=== PATIENT | female | born 1955 | race Caucasian/White ===

== ENCOUNTER 2023-06-11 14:38 | Outpatient (CLI) | payer OTHER, SELFPAY | END 2023-06-11 14:39 | disposition home or self-care (01) | PROVIDERS: PCP Family Medicine; Visit Provider Family Medicine | DX: M79.641 Pain in right hand (principal); Z13.220 Encounter for screening for lipoid disorders; Z13.21 Encounter for screening for nutritional disorder | CPT/HCPCS: 80061; 82607; 84550; 86140; 86431 ==

== ENCOUNTER 2024-03-10 09:56 | Outpatient (CLI) | payer OTHER, SELFPAY ==
--- OUTSIDE RECORDS SUMMARY | 2024-03-10 09:58 | XMS_ITS | Encounter Summary ---
Author Organization Formerly [facility], [facility] Address [address] [place] [address] Care Team Providers Care Customer Consulting Manager Name Role Phone Edgardo Pollard MD Primary Care Provider Encounter Details Date Type Department Care Team (Late st Contact Info) Description 01/09/2024 E-Visit [facility] [address] [place] [address] Mychart, [place] [address] Social History Tobacco Use Types Packs/Day Years Used Date Smoking Tobacco: Never Smokeless Tobacco: Never Alcohol Use Standard Drinks/Week Comments Yes 4 (1 standard drink = 0.6 oz pur e alcohol) Sex and Gender Information Value Date Recorded Sex Assigned at Not on file Gender Identity Not on file Sexual Orientation Not on file documented as of this encounter Plan of Treatment Not on file documented as of this encounter Visit Diagnoses Not on filedocumented in this encounter Care Teams Customer Consulting Manager Relationship Specialty Start Date End Date Edgardo Pollard MD [facility] [address] [place] [address] PCP - General Family Practice 04/13/21 documented as of this encounter
--- OUTSIDE RECORDS SUMMARY | 2024-03-10 09:58 | XMS_ITS | Encounter Summary ---
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 Name Role Phone Edgardo Pollard MD Primary Care Provider [phone] Encounter Details Date Type Department Care Team (Latest Contact Info) Description 01/27/2024 12:10 PM CDT - 01/27/2024 11:59 PM CDT Hospital Encounter [facility] Gastroenterology [address] [place] [address] Ann Garg MD [address] [place] [address] Screen for colon cancer (Primary Dx) Discharge Disposition: Home Social History Tobacco Use Types Packs/Day Years Used Date Smoking Tobacco: Never Smokeless Tobacco: Never Alcohol Use Standard Drinks/Week Comments Yes 4 (1 standard drink = 0.6 oz pur e alcohol) Sex and Gender Information Value Date Recorded Sex Assigned at Not on file Gender Identity Not on file Sexual Orientation Not on file documented as of this encounter Last Filed Vital Signs Vital Sign Reading Time Taken Comments Blood Pressure 130/86 01/27/2024 1:55 PM CDT Pulse 61 01/27/2024 1:55 PM CDT Temperature 36.9 ??C (98.4 ??F) 01/27/2024 12:23 PM C DT Respiratory Rate 14 01/27/2024 1:55 PM CDT Oxygen Saturation 98% 01/27/2024 1:55 PM CDT Inhaled Oxygen Concentration - - Weight 59.4 kg (131 lb) 01/27/2024 12:23 PM CDT Height - - Body Mass Index 21.14 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 Colon Polyps: Care Instructions Your Care Instructions Colon polyps are growths in the colon or the rectum. The cause of most colon polyps is not known, and most people who get them do not have any problems. But a certain kind can turn into cancer. For this reason, regular testing for colon polyps is important for people age 50 and older and anyone whohas an increased risk for colon cancer. Polyps are usually found through routine colon cancer screening tests. Although most colon polyps are not cancerous, they are usually removed and then tested for cancer. Screening for colon cancer saves lives because the cancer can usually be cured if it is caught early. If you have a polyp that is the type that can turn into cancer, you may need more tests to examine your entire colon. The doctor will remove any other polyps that he or she finds, and you will be tested more often. Follow-up care is a ross part of your treatment and safety. Be sure to make and go to all appointments, and call your doctor if you are having problems. It's also a good idea to know your test resultsand keep a list of the medicines you take. How can you care for yourself at home? Regular exams to look for colon polyps are the best way to prevent polyps from turning into colon cancer. These can include a test for blood in the stool (fecal occult blood test), colonoscopy, and sigmoidoscopy. Talk with your doctor about a testing schedule that is right for you. To prevent polyps There is no home treatment for colon polyps. But you can take steps to prevent them from forming. Get regular exercise and stay at a healthy body weight. Exercise can lower your chance of getting colon cancer. Get at least 30 minutes of exercise on most days of the week. Walking is a good choice.You also may want to do other activities, such as running, swimming, cycling, or playing tennis or team sports. Limit alcohol to 2 drinks a day for men and 1 drink a day for women. Too much alcohol can cause health problems. Do not smoke. Smoking can raise your risk of getting colon polyps. If you need help quitting, talk to your doctor about stop-smoking programs and medicines. These can increase your chances of quitting for good. Eat lots of fruits and vegetables, and limit animal fat in your diet. When should you call for help? Call your doctor now or seek immediate medical care if: You have severe belly pain. Your stools are maroon or very bloody. Watch closely for changes in your health, and be sure to contact your doctor if: You have a fever. You have nausea or vomiting. You have a change in bowel habits (new constipation or diarrhea). Your symptoms get worse or are not improving as expected. Where can you learn more? Go to [employer]/Sonendo and enter C571 in the search box. Current as of: June 02, 2015 Content Version: 108 ?? [id number] Huddler. Learning About Diverticulosis and Diverticulitis What are diverticulosis and diverticulitis? In diverticulosis and diverticulitis, pouches called diverticula form in the wall of the large intestine, or colon. In diverticulosis, the pouches do not cause any pain or other symptoms. In diverticulitis, the pouches get inflamed or infected and cause symptoms. Doctors aren't sure what causes these pouches in the colon. But they think that a low-fiber diet may play a role. Without fiber to add bulk to the stool, the colon has to work harder than normal to push the stool forward. The pressure from this may cause pouches to form in weak spots along the colon. Some people with diverticulosis get diverticulitis. But experts don't know why this happens. What are the symptoms? In diverticulosis, most people don't have symptoms. But pouches sometimes bleed. In diverticulitis, symptoms may last from a few hours to a week or more. They include: Belly pain. This is usually in the lower left side. It is sometimes worse when you move. This is the most common symptom. Fever and chills. Bloating and gas. Diarrhea or constipation. Nausea and sometimes vomiting. Not feeling like eating. How can you prevent these problems? You may be able to lower your chance of getting diverticulitis. You can do this by taking steps to prevent constipation. Eat fruits, vegetables, beans, and whole grains every day. These foods are high in fiber. Drink plenty of fluids (enough so that your urine is light yellow or clear like water). If you havekidney, heart, or liver disease and have to limit fluids, talk with your doctor before you increasethe amount of fluids you drink. Get at least 30 minutes of exercise on most days of the week. Walking is a good choice. You also may want to do other activities, such as running, swimming, cycling, or playing tennis or team sports. Take a fiber supplement, such as Citrucel or Metamucil, every day if needed. Read and follow all instructions on the label. Schedule time each day for a bowel movement. Having a daily routine may help. Take your time and donot strain when having a bowel movement. Some people avoid nuts, seeds, berries, and popcorn. They believe that these foods might get trapped in the diverticula and cause pain. But there is no proof that these foods cause diverticulitis or make it worse. How are these problems treated? The best way to treat diverticulosis is to avoid constipation. (See the tips above.) Treatment for diverticulitis includes antibiotics and often a change in your diet. You may need only liquids at first. Your doctor may suggest pain medicines for pain or belly cramps. In some cases, surgery may be needed. Follow-up care is a ross part of your treatment and safety. Be sure to make and go to all appointments, and call your doctor if you are having problems. It's also a good idea to know your test resultsand keep a list of the medicines you take. Where can you learn more? Go to [employer]/Sonendo and enter E426 in the search box. Current as of: June 02, 2015 Content Version: 108 ?? [id number] Flock, Family-Mingle. Hemorrhoids: Care Instructions Your Care Instructions Hemorrhoids are enlarged veins that develop in the anal canal. Bleeding during bowel movements, itching, swelling, and rectal pain are the most common symptoms. They can be uncomfortable at times, but hemorrhoids rarely are a serious problem. You can treat most hemorrhoids with simple changes to your diet and bowel habits. These changes include eating more fiber and not straining to pass stools. Most hemorrhoids do not need surgery or other treatment unless they are very large and painful or bleed a lot. Follow-up care is a ross part of your treatment and safety. Be sure to make and go to all appointments, and call your doctor if you are having problems. It???s also a good idea to know your test results and keep a list of the medicines you take. How can you care for yourself at home? Sit in a few inches of warm water (sitz bath) 3 times a day and after bowel movements. The warm water helps with pain and itching. Put ice on your anal area several times a day for 10 minutes at a time. Put a thin cloth between the ice and your skin. Follow this by placing a warm, wet towel on the area for another 10 to 20 minutes. Take pain medicines exactly as directed. If the doctor gave you a prescription medicine for pain, take it as prescribed. If you are not taking a prescription pain medicine, ask your doctor if you can take an vivx-dhd-agmcqcd medicine. Keep the anal area clean, but be gentle. Use water and a fragrance-free soap, such as Ivory, or usebaby wipes or medicated pads, such as Tucks. Wear cotton underwear and loose clothing to decrease moisture in the anal area. Eat more fiber. Include foods such as whole-grain breads and cereals, raw vegetables, raw and driedfruits, and beans. Drink plenty of fluids, enough so that your urine is light yellow or clear like water. If you have kidney, heart, or liver disease and have to limit fluids, talk with your doctor before you increase the amount of fluids you drink. Use a stool softener that contains bran or psyllium. You can save money by buying bran or psyllium (available in bulk at most [employer] food stores) and sprinkling it on foods or stirring it into fruit juice. Or you can use a product such as Metamucil or Hydrocil. Practice healthy bowel habits. Go to the bathroom as soon as you have the urge. Avoid straining to pass stools. Relax and give yourself time to let things happen naturally. Do not hold your breath while passing stools. Do not read while sitting on the toilet. Get off the toilet as soon as you have finished. Take your medicines exactly as prescribed. Call your doctor if you think you are having a problem with your medicine. When should you call for help? Call 911 anytime you think you may need emergency care. For example, call if: You pass maroon or very bloody stools. Call your doctor now or seek immediate medical care if: You have increased pain. You have increased bleeding. Watch closely for changes in your health, and be sure to contact your doctor if: Your symptoms have not improved after 3 or 4 days. Where can you learn more? Go to [employer]/Sonendo and enter F228 in the search box. Current as of: June 02, 2015 Content Version: 108 ?? [id number] Huddler. documented in this encounter Medications at Time of Discharge Medication Sig Dispensed Refills Start Date End Date desoximetasone (TOPICORT) 0.25 % ointment Apply to the affected areas on back of neck for up 2 weeks as needed with flares. 60 g 2 06/16/2017 documented as of this encounter Progress Notes * Ann Garg MD - 01/27/2024 12:30 PM CDT CC: Colonoscopy HPI: Patient here for colonoscopy. Clinically asymptomatic. History and Physical PMH: Reviewed PSH: Reviewed Social Hx: Reviewed Allergies: Reviewed Medications: Reviewed Family History: Reviewed Review of Systems: Pertinent ROS done. Exam: Alert, awake and oriented. Vitals: See documentation flowsheet. Pre-Sedation Assessment Head and Neck: Examined Chest: Clear to auscultation. No wheezes or rales. CVS: Regular, rate, rhythm. Abdomen: Abdomen soft, non-tender without masses or organomegaly. Extremities: Examined Hx sedation/anesthesia reaction: No Airway abnormal: No Mallampati Score: 2 ASA: P2 A patient with mild systemic dz Plan: Colonoscopy under moderate sedation Supervising provider: Ann Garg MD Potential risks and complications of procedure have been discussed with patient. Consent obtained prior to procedure. 01/27/2024, 1:00 PM documented in this encounter Procedure Notes * Ann Garg MD - 01/27/2024 12:20 PM CDT Patient Name: Aleja Salazar Procedure Date: 01/27/2024 12:20 PM Date of : 1955 Age: 68 Gender: Female Note Status: Finalized Instrument Name: 187 Procedure: Colonoscopy Indications: High risk colon cancer surveillance: Personal history of colonic polyps Providers: Ann Garg MD, Kati Meier MD: Medicines: Midazolam 2 mg IV, Fentanyl 100 micrograms IV Complications: No immediate complications. Procedure: Pre-Anesthesia Assessment: - Prior to the procedure, a History and Physical was performed, and patient medications and allergies were reviewed. The patient is competent. The risks and benefits of the procedure and the sedation options and risks were discussed with the patient. All questions were answered and informed consent was obtained. Patient identification and proposed procedure were verified by the physician and the nurse in the pre-procedure area in the procedure room in the endoscopy suite. Mental Status Examination: alert and oriented. Airway Examination: normal oropharyngeal airway and neck mobility. Respiratory Examination: clear to auscultation. CV Examination: normal. Prophylactic Antibiotics: The patient does not require prophylactic antibiotics. Prior Anticoagulants: The patient has taken no anticoagulant or antiplatelet agents. ASA Grade Assessment: II - A patient with mild systemic disease. After reviewing the risks and benefits, the patient was deemed in satisfactory condition to undergo the procedure. The anesthesia plan was to use moderate sedation / analgesia (conscious sedation). Immediately prior to administration of medications, the patient was re-assessed for adequacy to receive sedatives. The heart rate, respiratory rate, oxygen saturations, blood pressure, adequacy of pulmonary ventilation, and response to care were monitored throughout the procedure. The physical status of the patient was re-assessed after the procedure. After I obtained informed consent, the scope was passed under direct vision. Prior to sedation, patient identity and procedure was reverified. Throughout the procedure, the patient's blood pressure, pulse, and oxygen saturations were monitored continuously. The Colonoscope was introduced through the anus and advanced to the cecum, identified by appendiceal orifice and ileocecal valve. The colonoscopy was technically difficult and complex due to a redundant colon, significant looping and a tortuous colon. Successful completion of the procedure was aided by increasing the dose of sedation medication, using manual pressure, withdrawing and reinserting the scope, straightening and shortening the scope to obtain bowel loop reduction and using scope torsion. The patient tolerated the procedure fairly well. The quality of the bowel preparation was good. The ileocecal valve, appendiceal orifice, and rectum were photographed. Findings: The perianal and digital rectal examinations were normal. A 24 mm polyp was found in the hepatic flexure. The polyp was sessile. Preparations were made for mucosal resection. Saline was injected to raise the lesion. Snare mucosal resection was performed. Resection and retrieval were complete. A 12 mm polyp was found in the transverse colon. The polyp was sessile. The polyp was removed with a saline injection-lift technique using a hot snare. Resection and retrieval were complete. Verification of patient identification for the specimen was done. Estimated blood loss was minimal. A 3 mm polyp was found in the transverse colon. The polyp was sessile. The polyp was removed with a jumbo cold forceps. Resection and retrieval were complete. Verification of patient identification for the specimen was done. Estimated blood loss was minimal. Multiple medium-mouthed and small-mouthed diverticula were found in the sigmoid colon. Non-bleeding internal hemorrhoids were found during retroflexion. Moderate Sedation: Moderate (conscious) sedation was administered by the nurse and supervised by the endoscopist. The patient's oxygen saturation, heart rate, blood pressure and response to care were monitored. Total physician intraservice time was 32 minutes. Impression: - One 24 mm polyp at the hepatic flexure, removed with mucosal resection. Resected and retrieved. - One 12 mm polyp in the transverse colon, removed using injection-lift and a hot snare. Resected and retrieved. - One 3 mm polyp in the transverse colon, removed with a jumbo cold forceps. Resected and retrieved. - Diverticulosis in the sigmoid colon. - Non-bleeding internal hemorrhoids. - Mucosal resection was performed. Resection and retrieval were complete. Recommendation: - Discharge patient to home (ambulatory). - High fiber diet indefinitely. - No ibuprofen, naproxen, or other non-steroidal anti-inflammatory drugs for 2 weeks after polyp removal. - Await pathology results. - Repeat colonoscopy in 3 years for surveillance based on pathology results. - Return to referring physician as previously scheduled. Procedure Code(s): --- Professional --- 79250, 22,PT, Colonoscopy, flexible; with endoscopic mucosal resection 44985, 59,PT, Colonoscopy, flexible; with removal of tumor(s), polyp(s), or other lesion(s) by snare technique 95401, 59,PT, Colonoscopy, flexible; with biopsy, single or multiple 67311, 59,PT, Colonoscopy, flexible; with directed submucosal injection(s), any substance G0500, PT, Moderate sedation services provided by the same physician or other qualified health group care worker performing a gastrointestinal endoscopic service that sedation supports, requiring the presence of an independent trained observer to assist in the monitoring of the patient's level of consciousness and physiological status; initial 15 minutes of intra-service time; patient age 5 years or older (additional time may be reported with 32254, as appropriate) 69978, PT, Moderate sedation; each additional 15 minutes intraservice time Diagnosis Code(s): --- Professional --- Z12.11, Encounter for screening for malignant neoplasm of colon Z86.010, Personal history of colonic polyps K63.5, Polyp of Colon K64.8, Other hemorrhoids K57.30, Diverticulosis of large intestine without perforation or abscess without bleeding CPT copyright 2021 [employer]. All rights reserved. The codes documented in this report are preliminary and upon locksmith review may be revised to meet current compliance requirements. Attending Participation: MD Ann Portillo MD 01/27/2024 1:45:17 PM This report has been signed electronically. Number of Addenda: 0 Note Initiated On: 01/27/2024 12:20 PM documented in this encounter Plan of Treatment Not on file documented as of this encounter Procedures Procedure Name Priority Date/Time Associated Diagnosis Comments SURGICAL PATHOLOGY, GI Routine 01/27/2024 1:35 PM CDT Screen for colon cancer COLONOSCOPY Routine 01/27/2024 12:20 PM CDT Screen for colon cancer documented in this encounter Results * Surgical Path - GI (01/27/2024 1:35 PM CDT) Case Report Surgical Pathology ?Case: [id number] ? Authorizing Provider: ??Ann Garg MD ? Collected: ? 01/27/2024 1335 ? Ordering Location: ? [facility] ?? Received: ?01/27/2024 1418 ? [facility] ? Pathologist: ? Salena Foster MD ? Specimen: ?Colon, hepatic flexure, transverse ? 02/02/2024 10:39 AM [facility] FINAL DIAGNOSIS A. Colon, hepatic flexure, transverse, polypectomies: Tubular adenoma fragments 02/02/2024 10:39 AM [facility] Clinical Information Screening Colon 02/02/2024 10:39 AM [facility] Microscopic Description Microscopic examination is performed. 02/02/2024 10:39 AM T [facility] Gross Description A: The specimen is received in formalin and labeled with the patient's name and Colon, hepatic flexure, transverse. The specimen consists of a 1.3 x 0.8 x 0.7 cm sessile polyp. The polyp is sectioned and entirely submitted in cassette A1. Also received are 2 allen-pink polypoid tissue fragments measuring 0.2-1 cm. The fragments are filtered and entirely submitted in cassette A2. DR 02/02/2024 10:39 AM CDT [facility] Embedded Images 02/02/2024 10:39 AM T [facility] Tissue COLON STRUCTURE / Unknown 01/27/2024 1:35 PM CDT 01/27/2024 2:18 PM CDT Ann Garg MD LAB PATHOLOGY Performing Organization Address City/State/[facility] [place] [address], [facility] * COLONOSCOPY [[id number]] (01/27/2024 12:20 PM CDT) 01/27/2024 12:2 0 PM CDT Narrative GI ([facility]OVATION) - 01/27/2024 1:45 PM CDT Instrument Name: 187 Indications: ? High risk colon cancer surveillance: Personal ? history of colonic polyps Providers: ? Ann Garg MD, Kati Meier MD: ? Medicines: ? Midazolam 2 mg IV, Fentanyl 100 micrograms IV Complications: ? No immediate complications. Procedure: ? Pre-Anesthesia Assessment: ? - Prior to the procedure, a History and Physical ? was performed, and patient medications and ? allergies were reviewed. The patient is competent. ? The risks and benefits of the procedure and the ? sedation options and risks were discussed with the ? patient. All questions were answered and informed ? consent was obtained. Patient identification and ? proposed procedure were verified by the physician ? and the nurse in the pre-procedure area in the ? procedure room in the endoscopy suite. Mental ? Status Examination: alert and oriented. Airway ? Examination: normal oropharyngeal airway and neck ? mobility. Respiratory Examination: clear to ? auscultation. CV Examination: normal. Prophylactic ? Antibiotics: The patient does not require ? prophylactic antibiotics. Prior Anticoagulants: The ? patient has taken no anticoagulant or antiplatelet ? agents. ASA Grade Assessment: II - A patient with ? mild systemic disease. After reviewing the risks ? and benefits, the patient was deemed in ? satisfactory condition to undergo the procedure. ? The anesthesia plan was to use moderate sedation / ? analgesia (conscious sedation). Immediately prior ? to administration of medications, the patient was ? re-assessed for adequacy to receive sedatives. The ? heart rate, respiratory rate, oxygen saturations, ? blood pressure, adequacy of pulmonary ventilation, ? and response to care were monitored throughout the ? procedure. The physical status of the patient was ? re-assessed after the procedure. ? After I obtained informed consent, the scope was ? passed under direct vision. Prior to sedation, ? patient identity and procedure was reverified. ? Throughout the procedure, the patient's blood ? pressure, pulse, and oxygen saturations were ? monitored continuously. The Colonoscope was ? introduced through the anus and advanced to the ? cecum, identified by appendiceal orifice and ? ileocecal valve. The colonoscopy was technically ? difficult and complex due to a redundant colon, ? significant looping and a tortuous colon. ? Successful completion of the procedure was aided by ? increasing the dose of sedation medication, using ? manual pressure, withdrawing and reinserting the ? scope, straightening and shortening the scope to ? obtain bowel loop reduction and using scope ? torsion. The patient tolerated the procedure fairly ? well. The quality of the bowel preparation was ? good. The ileocecal valve, appendiceal orifice, and ? rectum were photographed. Findings: ? The perianal and digital rectal examinations were normal. ? A 24 mm polyp was found in the hepatic flexure. The polyp was ? sessile. Preparations were made for mucosal resection. Saline was ? injected to raise the lesion. Snare mucosal resection was performed. ? Resection and retrieval were complete. ? A 12 mm polyp was found in the transverse colon. The polyp was ? sessile. The polyp was removed with a saline injection-lift technique ? using a hot snare. Resection and retrieval were complete. ? Verification of patient identification for the specimen was done. ? Estimated blood loss was minimal. ? A 3 mm polyp was found in the transverse colon. The polyp was ? sessile. The polyp was removed with a jumbo cold forceps. Resection ? and retrieval were complete. Verification of patient identification ? for the specimen was done. Estimated blood loss was minimal. ? Multiple medium-mouthed and small-mouthed diverticula were found in ? the sigmoid colon. ? Non-bleeding internal hemorrhoids were found during retroflexion. Moderate Sedation: ? Moderate (conscious) sedation was administered by the nurse and ? supervised by the endoscopist. The patient's oxygen saturation, heart ? rate, blood pressure and response to care were monitored. Total ? physician intraservice time was 32 minutes. Impression: ?- One 24 mm polyp at the hepatic flexure, removed ? with mucosal resection. Resected and retrieved. ? - One 12 mm polyp in the transverse colon, removed ? using injection-lift and a hot snare. Resected and ? retrieved. ? - One 3 mm polyp in the transverse colon, removed ? with a jumbo cold forceps. Resected and retrieved. ? - Diverticulosis in the sigmoid colon. ? - Non-bleeding internal hemorrhoids. ? - Mucosal resection was performed. Resection and ? retrieval were complete. Recommendation: ?- Discharge patient to home (ambulatory). ? - High fiber diet indefinitely. ? - No ibuprofen, naproxen, or other non- steroidal ? anti-inflammatory drugs for 2 weeks after polyp ? removal. ? - Await pathology results. ? - Repeat colonoscopy in 3 years for surveillance ? based on pathology results. ? - Return to referring physician as previously ? scheduled. Procedure Code(s): ? --- Professional --- ? 48457, 22,PT, Colonoscopy, flexible; with ? endoscopic mucosal resection ? 12824, 59,PT, Colonoscopy, flexible; with removal ? of tumor(s), polyp(s), or other lesion(s) by snare ? technique ? 36761, 59,PT, Colonoscopy, flexible; with biopsy, ? single or multiple ? 61489, 59,PT, Colonoscopy, flexible; with directed ? submucosal injection(s), any substance ? G0500, PT, Moderate sedation services provided by ? the same physician or other qualified health care ? professional performing a gastrointestinal ? endoscopic service that sedation supports, ? requiring the presence of an independent trained ? observer to assist in the monitoring of the ? patient's level of consciousness and physiological ? status; initial 15 minutes of intra-service time; ? patient age 5 years or older (additional time may ? be reported with 18215, as appropriate) ? 30789, PT, Moderate sedation; each additional 15 ? minutes intraservice time Diagnosis Code(s): ? --- Professional --- ? Z12.11, Encounter for screening for malignant ? neoplasm of colon ? Z86.010, Personal history of colonic polyps ? K63.5, Polyp of Colon ? K64.8, Other hemorrhoids ? K57.30, Diverticulosis of large intestine without ? perforation or abscess without bleeding CPT copyright 2021 [employer]. All rights reserved. The codes documented in this report are preliminary and upon locksmith review may be revised to meet current compliance requirements. Attending Participation: MD Ann Portillo MD 01/27/2024 1:45:17 PM This report has been signed electronically. Number of Addenda: 0 Note Initiated On: 01/27/2024 12:20 PM Procedure Note Ann Garg MD - 01/27/2024 Instrument Name: [id number] Indications: High risk colon cancer surveillance: Personal history of colonic polyps Providers: Ann Garg MD, Kati Meier MD: Medicines: Midazolam 2 mg IV, Fentanyl 100 micrograms IV Complications: No immediate complications. Procedure: Pre-Anesthesia Assessment: - Prior to the procedure, a History and Physical was performed, and patient medications and allergies were reviewed. The patient is competent. The risks and benefits of the procedure and the sedation options and risks were discussed with the patient. All questions were answered and informed consent was obtained. Patient identification and proposed procedure were verified by the physician and the nurse in the pre-procedure area in the procedure room in the endoscopy suite. Mental Status Examination: alert and oriented. Airway Examination: normal oropharyngeal airway and neck mobility. Respiratory Examination: clear to auscultation. CV Examination: normal. Prophylactic Antibiotics: The patient does not require prophylactic antibiotics. Prior Anticoagulants: The patient has taken no anticoagulant or antiplatelet agents. ASA Grade Assessment: II - A patient with mild systemic disease. After reviewing the risks and benefits, the patient was deemed in satisfactory condition to undergo the procedure. The anesthesia plan was to use moderate sedation / analgesia (conscious sedation). Immediately prior to administration of medications, the patient was re-assessed for adequacy to receive sedatives. The heart rate, respiratory rate, oxygen saturations, blood pressure, adequacy of pulmonary ventilation, and response to care were monitored throughout the procedure. The physical status of the patient was re-assessed after the procedure. After I obtained informed consent, the scope was passed under direct vision. Prior to sedation, patient identity and procedure was reverified. Throughout the procedure, the patient's blood pressure, pulse, and oxygen saturations were monitored continuously. The Colonoscope was introduced through the anus and advanced to the cecum, identified by appendiceal orifice and ileocecal valve. The colonoscopy was technically difficult and complex due to a redundant colon, significant looping and a tortuous colon. Successful completion of the procedure was aided by increasing the dose of sedation medication, using manual pressure, withdrawing and reinserting the scope, straightening and shortening the scope to obtain bowel loop reduction and using scope torsion. The patient tolerated the procedure fairly well. The quality of the bowel preparation was good. The ileocecal valve, appendiceal orifice, and rectum were photographed. Findings: The perianal and digital rectal examinations were normal. A 24 mm polyp was found in the hepatic flexure. The polyp was sessile. Preparations were made for mucosal resection. Saline was injected to raise the lesion. Snare mucosal resection was performed. Resection and retrieval were complete. A 12 mm polyp was found in the transverse colon. The polyp was sessile. The polyp was removed with a saline injection-lift technique using a hot snare. Resection and retrieval were complete. Verification of patient identification for the specimen was done. Estimated blood loss was minimal. A 3 mm polyp was found in the transverse colon. The polyp was sessile. The polyp was removed with a jumbo cold forceps. Resection and retrieval were complete. Verification of patient identification for the specimen was done. Estimated blood loss was minimal. Multiple medium-mouthed and small-mouthed diverticula were found in the sigmoid colon. Non-bleeding internal hemorrhoids were found during retroflexion. Moderate Sedation: Moderate (conscious) sedation was administered by the nurse and supervised by the endoscopist. The patient's oxygen saturation, heart rate, blood pressure and response to care were monitored. Total physician intraservice time was 32 minutes. Impression: - One 24 mm polyp at the hepatic flexure, removed with mucosal resection. Resected and retrieved. - One 12 mm polyp in the transverse colon, removed using injection-lift and a hot snare. Resected and retrieved. - One 3 mm polyp in the transverse colon, removed with a jumbo cold forceps. Resected andretrieved. - Diverticulosis in the sigmoid colon. - Non-bleeding internal hemorrhoids. - Mucosal resection was performed. Resection and retrieval were complete. Recommendation: - Discharge patient to home (ambulatory). - High fiber diet indefinitely. - No ibuprofen, naproxen, or other non-steroidal anti-inflammatory drugs for 2 weeks after polyp removal. - Await pathology results. - Repeat colonoscopy in 3 years for surveillance based on pathology results. - Return to referring physician as previously scheduled. Procedure Code(s): --- Professional --- 43370, 22,PT, Colonoscopy, flexible; with endoscopic mucosal resection 24317, 59,PT, Colonoscopy, flexible; with removal of tumor(s), polyp(s), or other lesion(s) by snare technique 69626, 59,PT, Colonoscopy, flexible; with biopsy, single or multiple 01930, 59,PT, Colonoscopy, flexible; with directed submucosal injection(s), any substance G0500, PT, Moderate sedation services provided by the same physician or other qualified health group care worker performing a gastrointestinal endoscopic service that sedation supports, requiring the presence of an independent trained observer to assist in the monitoring of the patient's level of consciousness and physiological status; initial 15 minutes of intra-service time; patient age 5 years or older (additional time may be reported with 27531, as appropriate) 44555, PT, Moderate sedation; each additional 15 minutes intraservice time Diagnosis Code(s): --- Professional --- Z12.11, Encounter for screening for malignant neoplasm of colon Z86.010, Personal history of colonic polyps K63.5, Polyp of Colon K64.8, Other hemorrhoids K57.30, Diverticulosis of large intestine without perforation or abscess without bleeding CPT copyright 2021 [employer]. All rights reserved. The codes documented in this report are preliminary and upon locksmith review may be revised to meet current compliance requirements. Attending Participation: MD Ann Portillo MD 01/27/2024 1:45:17 PM This report has been signed electronically. Number of Addenda: 0 Note Initiated On: 01/27/2024 12:20 PM Ann Garg MD [facility] [place], [place] documented in this encounter Visit Diagnoses Diagnosis Screen for colon cancer- Primary Special screening for malignant neoplasms, colon documented in this encounter Administered Medications Inactive Administered Medications - up to 3 most recent administrations Medication Order MAR Action Action Date Dose Rate Site fentaNYL (SUBLIMAZE) injection 25-100 mcg 25-100 mcg, Intravenous, PRN WITH PROCEDURES, Sedation, Procedure, Starting on Fri01/27/24 at 1300, Until Fri01/27/24 at 1659, For 4 hours, Administer in 25-100 mcg increments as directed by endoscopy procedure practitioner up to a total of 300 mcg (Give only during endoscopy procedure visit). Given 01/27/2024 1:02 PM CDT 100 mcg midazolam (VERSED) injection 0.5-2 mg 0.5-2 mg, Intravenous, PRN WITH PROCEDURES, Sedation, Procedure, Starting on Fri01/27/24 at 1300, Until Fri01/27/24 at 1659, For 4 hours, Administer in 0.5-2 mg increments as directed by endoscopy procedure practitioner up to a total of 8 mg (Give only during endoscopy procedure visit). Given 01/27/2024 1:02 PM CDT 2 mg documented in this encounter Care Teams Motor Home Electrical Foreman Relationship Specialty Start Date End Date Edgardo Pollard MD [facility] [address] [place] [address] PCP - General Family Practice 04/13/21 documented as of this encounter
--- OUTSIDE RECORDS SUMMARY | 2024-03-10 09:58 | XMS_ITS | Encounter Summary ---
Author Organization [facility] Address [address] [place] [address] Care Team Providers Care Garbage Collection Supervisor Name Role Phone Edgardo Pollard MD Primary Care Provider [phone] Encounter Details Date Type Department Care Team (Late st Contact Info) Description 01/08/2024 Notes/Orders [facility] [address] [place], [place] [phone] Ann Garg MD [address] [place], [place] [phone] Social History Tobacco Use Types Packs/Day Years [...] on filedocumented in this encounter Care Teams Garbage Collection Supervisor Relationship Specialty Start Date End Date Edgardo Pollard MD [facility] [address] [facility] [address] PCP - General Family Practice 04/13/21 documented as of this encounter
--- OUTSIDE RECORDS SUMMARY | 2024-03-10 09:58 | XMS_ITS | Encounter Summary ---
Author Organization [facility] Address [address] [place] [address] Care Team Providers Care Assistant Professor Of Theater Name Role Phone Edgardo Pollard MD Primary Care Provider [phone] Encounter Details Date Type Department Care Team (Late st Contact Info) Description 01/01/2016 Outside Hospital External to [facility], Provider [facility] [place] Social History Tobacco Use Types Packs/Day Years Used Date Smoking Tobacco: Never Sex and Gender Information Value Date Recorded Sex Assigned at Not on file Gender Identity Not on file Sexual Orientation Not on file documented as of this encounter Plan of Treatment Not on file documented as of this encounter Visit Diagnoses Not on filedocumented in this encounter Care Teams Assistant Professor Of Theater Relationship Specialty Start Date End Date Edgardo Pollard MD [facility] [address] [place] [address] PCP - General Family Practice 04/13/21 documented as of this encounter
--- OUTSIDE RECORDS SUMMARY | 2024-03-10 09:58 | XMS_ITS | Encounter Summary ---
Author Organization [facility] Address [address] [place] [address] Care Team Providers Care Bill Clerk Name Role Phone Edgardo Pollard MD Primary Care Provider [phone] Encounter Details Date Type Department Care Team (Late st Contact Info) Description 04/03/2016 Correspondence External to External, [place] [address] [facility] Social History Tobacco Use Types Packs/Day Years [...] on filedocumented in this encounter Care Teams Bill Clerk Relationship Specialty Start Date End Date Edgardo Pollard MD [facility] [address] [place] [address] PCP - General Family Practice 04/13/21 documented as of this encounter
--- OUTSIDE RECORDS SUMMARY | 2024-03-10 09:58 | XMS_ITS | Encounter Summary ---
Author Organization [facility] Address [address] [place] [address] Care Team Providers Care Histologic Technician Name Role Phone Edgardo Pollard MD Primary Care Provider [phone] Encounter Details Date Type Department Care Team (Late st Contact Info) Description 12/27/2015 Outside Hospital External to [facility], Provider [facility] Social History Tobacco Use Types Packs/Day Years Used Date Smoking Tobacco: Never Sex and Gender Information Value Date Recorded Sex Assigned at Not on file Gender Identity Not on file Sexual Orientation Not on file documented as of this encounter Plan of Treatment Not on file documented as of this encounter Visit Diagnoses Not on filedocumented in this encounter Care Teams Histologic Technician Relationship Specialty Start Date End Date Edgardo Pollard MD [facility] [address] [place] [address] PCP - General Family Practice 04/13/21 documented as of this encounter
--- OUTSIDE RECORDS SUMMARY | 2024-03-10 09:58 | XMS_ITS | Encounter Summary ---
Author Organization [facility] Address [address] [place] [address] Care Team Providers Care Pound Attendant Name Role Phone Edgardo Pollard MD Primary Care Provider [phone] Encounter Details Date Type Department Care Team (Late st Contact Info) Description 01/04/2016 Correspondence None Correspondence, Provider [facility] CERTIFICATION OF MEDICAL NECESSITY Social History Tobacco Use Types Packs/Day Years Used Date Smoking Tobacco: Never Sex and Gender Information Value Date Recorded Sex Assigned at Not on file Gender Identity Not on file Sexual Orientation Not on file documented as of this encounter Plan of Treatment Not on file documented as of this encounter Visit Diagnoses Not on filedocumented in this encounter Care Teams Pound Attendant Relationship Specialty Start Date End Date Edgardo Pollard MD [facility] [address] [place] [address] PCP - General Family Practice 04/13/21 documented as of this encounter
--- OUTSIDE RECORDS SUMMARY | 2024-03-10 09:58 | XMS_ITS | Clinical Summary ---
Author Organization [email or web address] Address [address] [place] [address] Care Team Providers Care Coring Machine Operator Name Role Phone Edgardo Pollard MD Primary Care Provider [phone] Source Comments You are receiving this document as you are listed as the primary care provider,follow-up provider, or the patient has been referred to you for consultation.This is in compliance with the Medicare andThe [facility] EHR Incentive Program,which states Providers who transition their patient to another setting of careor provider of care or refers their patient to another provider of care shouldprovide summary care record for each transition of care or referral. [employer] Allergies No known active allergies Medications Medication Sig Dispensed Refills Start Date End Date Status desoximetasone (TOPICORT) 0.25 % ointment Apply to the affected areas on back of neck for up 2 weeks as needed with flares. 60 g 2 06/16/2017 Active Additional Information Patient not taking.Reported on 01/23/2021 Active Problems Problem Noted Date Diagnosed Date Primary osteoarthritis of right hip 06/04/2021 Cervical cancer screening 08/31/2018 Overview (08/31/2018): From visit on 08/21/18: History of abnormal pap tests? Yes; in her 20's? (no treatment required, just repeated and it was normal), last pap 2014 was NILM at [place] (no HPV tested 2019 NILM; HPV negative 62 y.o. Plan: Pap and co-testing (pap and HPV) 08/2023 History of arthrodesis 02/07/2016 Closed fracture of lumbar vertebra with spinal c ord injury 12/28/2015 DVT (deep venous thrombosis) 12/13/2015 Overview (06/04/2021): post op Resolved Problems Problem Noted Date Diagnosed Date Resolved Date Acute deep vein thrombosis ( DVT) of tibial vein of left lower extremity 01/22/2016 01/16/2017 CAREPLAN: ANTI-COAGULATION 01/22/2016 0 08/13/2016 Overview (03/05/2017): Anticoagulation Careplan for Aleja Salazar Diagnoses: DVT. Therapeutic range: 2 - 3. Warfarin pill strength: 5 mg.. Initiation date ( AKA date when started on warfarin ): 01/20/16. Length of treatment: 6 month possibley. Comments: N/A Jazz Logan RN ; CAREPLAN: ANTI-COAGULATION CAREPLAN: [facility] 6 05/13/2016 Overview (05/13/2016): Background: Engaged in Complex Case Management:Caro Yanez RN [phone] Goals/Recommendations: Encounters Date Type Department Care Team Description 01/27/2024 12:10 PM CDT - 01/27/2024 11:59 PM CDT Hospital Encounter [facility] [address] [place] [address] Ann Garg MD Screen for colon cancer (Primary Dx) Discharge Disposition: Home 01/09/2024 E-Visit [facility] [address] [place] [address] Mychart, Generic Provider 01/08/2024 Notes/Orders [facility] [address] [place] [id number] Ann Garg MD from Last 3 Months Immunizations Name Administration Dates Next Due Nelly COVID-19 Vaccine 09/20/2020 Tdap 08/21/2018 Family History Medical History Relation Name Comments Cancer, Breast Negative Family History Cancer, Ovary Negative Family History Social History Tobacco Use Types Packs/Day Years Used Date Smoking Tobacco: Never Smokeless Tobacco: Never Alcohol Use Standard Drinks/Week Comments Yes 4 (1 standard drink = 0.6 oz pur e alcohol) Sex and Gender Information Value Date Recorded Sex Assigned at Not on file Gender Identity Not on file Sexual Orientation Not on file Last Filed Vital Signs Vital Sign Reading Time Taken Comments Blood Pressure 130/86 01/27/2024 1:55 PM CDT Pulse 61 01/27/2024 1:55 PM CDT Temperature 36.9 ??C (98.4 ??F) 01/27/2024 12:23 PM C DT Respiratory Rate 14 01/27/2024 1:55 PM CDT Oxygen Saturation 98% 01/27/2024 1:55 PM CDT Inhaled Oxygen Concentration - - Weight 59.4 kg (131 lb) 01/27/2024 12:23 PM CDT Height 167.6 cm (5' 6) 08/04/2020 11:18 AM SET UP AND CHARGER Body Mass Index 21.14 08/04/2020 11:18 AM SET UP AND CHARGER Plan of Treatment Health Maintenance Due Date Last Done Comments Hep C Screening (Preventive Services) 1955 MTM Covered 1955 Cholesterol 1998 Pneumococcal 65+ Yrs (1 - PCV) 2018 COVID-19 Vaccine (2 - 2022- season) 2023 09/20/2020 Medicare Annual Wellness Visit 07/14/2023 Influenza (#1) 2024 05/17/2021, 06/28/2019 Mammogram 05/26/2024 05/26/2023, 10/0 07/2020, 09/15/2018, Additional history exists Colonoscopy 01/26/2027 01/27/2024, 02/02/2019 DTaP/Tdap/Td (2 - Tdap) 08/21/2028 08/21/2018 Dexa Completed 09/15/2018 Zoster/Shingles Completed 11/11/2019, 08/10/2019 HepA Aged Out No longer eligi ble based on patient's age to complete this topic HepB Aged Out No longer eligi ble based on patient's age to complete this topic Hib Aged Out No longer eligi ble based on patient's age to complete this topic IPV (Polio) Aged Out No longer eligi ble based on patient's age to complete this topic MCV4 Aged Out No longer eligi ble based on patient's age to complete this topic Procedures Procedure Name Priority Date/Time Associated Diagnosis Comments SURGICAL PATHOLOGY, GI Routine 01/27/2024 1:35 PM CDT Screen for colon cancer COLONOSCOPY Routine 01/27/2024 12:20 PM CDT Screen for colon cancer MM MAMMOGRAM SCREENING BILAT W 3D ROLANDO W CAD Routine 05/26/2023 1:00 PM SET UP AND CHARGER DXA BONE DENSITY SPINE/HIP/FOREARM Routine 09/15/2018 11:49 AM SET UP AND CHARGER Osteoporosis screening from Last 3 Months or Most Recently Relevant to Health Maintenance Results * Surgical Path - GI (01/27/2024 1:35 PM CDT) Case Report Surgical Pathology ?Case: [id number] ? Authorizing Provider: ??Ann Garg MD ? Collected: ? 01/27/2024 1335 ? Ordering Location: ? [facility] ?? Received: ?01/27/2024 1418 ? [facility] ? Pathologist: ? Salena Foster MD ? Specimen: ?Colon, hepatic flexure, transverse ? 02/02/2024 10:39 AM [facility] FINAL DIAGNOSIS A. Colon, hepatic flexure, transverse, polypectomies: Tubular adenoma fragments 02/02/2024 10:39 AM [facility] Clinical Information Screening Colon 02/02/2024 10:39 AM [facility] Microscopic Description Microscopic examination is performed. 02/02/2024 10:39 AM [facility] Gross Description A: The specimen is received [...] filtered and entirely submitted in cassette A2. 02/02/2024 10:39 AM [facility] Embedded Images 02/02/2024 10:39 AM [facility] Tissue COLON STRUCTURE / Unknown 01/27/2024 1:35 PM CDT 01/27/2024 2:18 PM CDT Ann Garg MD LAB PATHOLOGY [address] [address], [facility] * COLONOSCOPY [[id number]] (01/27/2024 12:20 PM CDT) 01/27/2024 12:2 0 [...] the transverse colon, removed ? with a [employer] cold forceps. Resected and retrieved. ? - [...] Procedure Code(s): ? --- Professional --- ? 73427, 22,PT, Colonoscopy, flexible; with ? endoscopic mucosal resection ? 06175, 59,PT, Colonoscopy, flexible; with removal ? of tumor(s), polyp(s), or other lesion(s) by snare ? technique ? 99743, 59,PT, Colonoscopy, flexible; with biopsy, ? single or multiple ? 60757, 59,PT, Colonoscopy, flexible; with directed ? submucosal [...] (additional time may ? be reported with 15431, as appropriate) ? 63840, PT, Moderate sedation; each additional 15 ? minutes intraservice time Diagnosis Code(s): ? --- Professional --- ? Z12.11, Encounter for screening for malignant ? neoplasm of colon ? Z86.010, Personal history of colonic polyps ? K63.5, Polyp of Colon ? K64.8, Other hemorrhoids ? K57.30, Diverticulosis of large intestine without ? perforation or abscess without bleeding CPT copyright 202 [employer]. All rights reserved. The codes documented in this report are preliminary and upon dietary aide cook review may be revised to meet current [...] previously scheduled. Procedure Code(s): --- Professional --- 95116, 22,PT, Colonoscopy, flexible; with endoscopic mucosal resection 48992, 59,PT, Colonoscopy, flexible; with removal of tumor(s), polyp(s), or other lesion(s) by snare technique 76637, 59,PT, Colonoscopy, flexible; with biopsy, single or multiple 66352, 59,PT, Colonoscopy, flexible; with directed submucosal injection(s), any substance G0500, PT, Moderate sedation services provided by the same physician or other qualified health landcare facilitator performing a gastrointestinal endoscopic service that sedation supports, requiring the presence of an independent trained observer to assist in the monitoring of the patient's level of consciousness and physiological status; initial 15 minutes of intra-service time; patient age 5 years or older (additional time may be reported with 96824, as appropriate) 47317, PT, Moderate sedation; each additional 15 minutes intraservice time Diagnosis Code(s): --- Professional --- Z12.11, Encounter for screening for malignant neoplasm of colon Z86.010, Personal history of colonic polyps K63.5, Polyp of Colon K64.8, Other hemorrhoids K57.30, Diverticulosis of large intestine without perforation or abscess without bleeding CPT copyright 2 [employer]. All rights reserved. The codes documented in this report are preliminary and upon dietary aide cook review may be revised to meet current compliance requirements. Attending Participation: MD Ann Portillo MD 01/27/2024 1:45:17 PM This report has been signed electronically. Number of Addenda: 0 Note Initiated On: 01/27/2024 12:20 PM Ann Garg MD [facility] ([facility]OV[facility]) [facility], [place] * MM Mammogram Screening Bilat W 3D Rolando W CAD (05/26/2023 1:00 PM SET UP AND CHARGER) Anatomical Region Laterality Modality Breast Bilateral Mammography Impressions 05/27/2023 1:18 PM SET UP AND CHARGER : ACR BI-RADS Category 1: Negative RECOMMENDATION: Follow Up Imaging in 12 months - Bilateral The results and recommendations of this examination will be communicated to the patient. Narrative 05/27/2023 1:18 PM SET UP AND CHARGER MM MAMMOGRAM SCREENING BILAT W 3D ROLANDO W CAD performed on 05/26/23 Compared to: 04/13/2021 MM Mammogram Screening Bilat W 3D Rolando W CAD, 09/15/2018 MM Mammogram Screening Bilat W 3D Rolando W CAD, and 06/16/2017 MM Mammogram Screening Bilat W Rolando W CAD ?? FINDINGS: Bilateral screening mammogram was performed with the assistance of Computer-Aided Detection and breast tomosynthesis. The breasts have scattered areas of fibroglandular density. There is no radiographic evidence of malignancy. ?? Edgardo Pollard MD RAD [facility] * Dexa Bone Density Spine/Hip/Forearm (09/15/2018 11:49 AM SET UP AND CHARGER) Anatomical Region Laterality Modality Lower Extremity, Upper Extremity, Spine, Hip, L- Spine, Forearm Other Narrative 09/15/2018 12:23 PM SET UP AND CHARGER WHO Criteria for the diagnosis of osteoporosis: T-score >-1 Normal T-score between -1 and -2.5 Osteopenia T-score <-2.5 Osteoporosis Fracture risk: T-score -1 ?? 2 times increased ?-2 ?? 4 times increased ?-3 ?? 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 Gender: female Height :5' 4.75 Weight (lbs):140 lbs Race: Medical/Surgical History Menstrual periods:None Age of menopause:49 History of hip fractures in parents:No History of previous fractures occurring spontaneously, or a fracture as a result of a fall from a standing height or less:No If yes, indicated area: Glucocorticoids use:No Currently taking medication:None Have or had listed medical conditions:None Dietary/Habit Alcohol 3units or more per day (on average):No Currently smoking:No Other pertinent history:Baseline Lumbar fusion T-1 L-1. Hardware at L-1,2,3. Dual-X-ray Absorptiometry (DXA Results) AP spine (L1-L4) Left hip (neck) Left ??hip (total) Left forearm (1/3) BMD (gm/cm2) ??0.656 0.805 0.691 ? T score ??-1.7 -1.1 -0.1 ? Z score ??-0.2 0.1 1.6 %change from previous scan dated: ?N/A FRAX Score: 10 YR Risk Hip Fracture % 1.8% Typical threshold to start therapy in patients is a 10-year risk of hip fracture >3%. Clinician? s judgment and/or patient preferences may indicate treatment for people with 10-year fracture probabilities above or below these levels. 10 YR Risk Major Osteoporotic Fracture % 15% Typical threshold to start therapy in patients is a 10-year risk of any osteoporotic fracture >20%.Clinicians judgment and/or patient preferences may indicate treatment for people with 10-year fracture probabilities above or below these levels. Diagnosis: *Osteopenia of left hip Recommendations:. *Ensure appropriate calcium and vitamin D intake. *Use the FRAX score (above) and clinical judgment to guide further therapy. DXA Scan Follow-up When do you repeat a DXA scan? This depends on a number of factors, including baseline DXA scan results and risk factors for accelerated bone loss. ??Timing of follow up scan should be individualized. ??These are general recommendations, but if a patient has significant risk factors for accelerated bone loss that are not noted on the DXA report, more aggressive follow up should be pursued 1. In women and men with low bone mass (T-score -2.00 to -2.49) at any site or who have risk factors for ongoing bone loss (eg, glucocorticoid use, hyperparathyroidism, aromatase inhibitors, etc.), consider a follow-up DXA approximately every one to two years as long as the risk factor persists 2. In women 65 years of age and older at baseline screening, with low bone mass (T-score -1.50 to -1.99) at any site, and with no risk factors for accelerated bone loss, consider a follow-up DXA in three to five years. ?? For women under 65 years old and men, there is no consensus recommendation due to the paucity of data. ?? 3. In women 65 years of age and older with normal or slightly low bone mass (T-score -1.01 to -1.49) at baseline measurement and no risk factors for accelerated bone loss, consider a follow-up DXA in 10 to 15 years. ?? For women under 65 years old and men, there is no consensus recommendation due to the paucity of data. 4. In patients with osteoporosis or who? s FRAX score suggests treatment should be initiated, consider a follow-up DXA in one to two years. 5. In patients who are currently on treatment for low bone mass, consider repeating DXA scan one to two years after initiating treatment and possibly less frequently thereafter. ?? There are no recommendations for men <50 years old, or premenopausal women. The FRAX?? tool has been developed by WHO to evaluate fracture risk to patients. It is based on individual patient models that integrate the risks associated with clinical risk factors as well as bone mineral density (BMD) at the femoral neck. The FRAX?? algorithms give the 10-year probability of fracture. The output is a 10-year probability of hip fracture and the 10-year probability of a major osteoporotic fracture (clinical spine, forearm, hip or shoulder fracture). Consider FDA-approved medical therapies in postmenopausal women and men aged 50 years and older, based on the following: ?? A hip or vertebral (clinical or morphometric) fracture. ?? T-score ? -2.5 at the femoral neck or spine after appropriate evaluation to exclude secondary causes. ?? Low bone mass(T-score -1.0 and -2.5 at the femoral neck or spine) and a 10-year probability of a hip fracture ? 3% or a 10-year probability of a major osteoporosis-related fracture ? 20% based on the [place]-adapted WHO algorithm. ?? Clinicians judgment and/or patient preferences may indicate treatment for people with 10-year fracture probabilities above or below these levels. ?? Karli Vincent MD RAD DEXA from Last 3 Months or Most Recently Relevant to Health Maintenance Advance Directives * Full Code (Latest Code Status on File) Date Activated Date Inactivated Comments 01/05/2016 11:39 AM 01/09/2016 5:25 PM Care Teams Coring Machine Operator Relationship Specialty Start Date End Date Edgardo Pollard MD [facility] [address] [place] [address] PCP - General Family Practice 04/13/21
--- OUTSIDE RECORDS SUMMARY | 2024-03-10 09:58 | XMS_ITS | Encounter Summary ---
Author Organization [employer] Address [address] [place] [address] Care Team Providers Care Sales Training Manager Name Role Phone Edgardo Pollard MD Primary Care Provider [phone] Encounter Details Date Type Department Care Team (Late st Contact Info) Description 12/29/2015 Outside Hospital External to [facility], Provider [facility] RE[facility] Social History Tobacco Use Types Packs/Day Years Used Date Smoking Tobacco: Never Sex and Gender Information Value Date Recorded Sex Assigned at Not on file Gender Identity Not on file Sexual Orientation Not on file documented as of this encounter Plan of Treatment Not on file documented as of this encounter Visit Diagnoses Not on filedocumented in this encounter Care Teams Sales Training Manager Relationship Specialty Start Date End Date Edgardo Pollard MD [facility] [address] [place] [address] PCP - General Family Practice 04/13/21 documented as of this encounter
--- OUTSIDE RECORDS SUMMARY | 2024-03-10 09:58 | XMS_ITS | Encounter Summary ---
Author Organization [employer] Address [address] [place] [address] Care Team Providers Care Special Certificate Dictator Name Role Phone Edgardo Pollard MD Primary Care Provider [phone] Encounter Details Date Type Department Care Team (Late st Contact Info) Description 02/02/2019 Consent for Procedure/Treatme nt [facility] INFORMED CONSENT RECORD Social History Tobacco Use Types Packs/Day Years [...] on filedocumented in this encounter Care Teams Special Certificate Dictator Relationship Specialty Start Date End Date Edgardo Pollard MD [facility] [address] [place] [address] PCP - General Family Practice 04/13/21 documented as of this encounter
--- OUTSIDE RECORDS SUMMARY | 2024-03-10 09:58 | XMS_ITS | Encounter Summary ---
Author Organization [employer] Address [address] [place] [address] Care Team Providers Care Corporate Webmaster Name Role Phone Edgardo Pollard MD Primary Care Provider [phone] Encounter Details Date Type Department Care Team (Late st Contact Info) Description 01/05/2016 Outside Hospital External to [facility], Provider [facility] D/C SUMMARY Social History Tobacco Use Types Packs/Day Years [...] on filedocumented in this encounter Care Teams Corporate Webmaster Relationship Specialty Start Date End Date Edgardo Pollard MD [facility] BY [facility] [address] [place] [address] PCP - General Family Practice 04/13/21 documented as of this encounter
--- OUTSIDE RECORDS SUMMARY | 2024-03-10 09:58 | XMS_ITS | Encounter Summary ---
Author Organization [employer] Address [address] [place] [address] Care Team Providers Care Circle Cutting Saw Operator Name Role Phone Edgardo Pollard MD Primary Care Provider [phone] Encounter Details Date Type Department Care Team (Late st Contact Info) Description 01/19/2016 Correspondence [facility] [address] [place], [place] [id number] [place] [address] [place] [address] DISABILITY PARKING APPLICATION Social History Tobacco Use Types Packs/Day Years [...] on filedocumented in this encounter Care Teams Circle Cutting Saw Operator Relationship Specialty Start Date End Date Edgardo Pollard MD [facility] [address] [place] [address] PCP - General Family Practice 04/13/21 documented as of this encounter
--- NOTE | 2024-03-10 10:15 | MR_ITS ---
[facility] [address] [facility] [address] Phone:?[phone] Fax:?[phone] Referring Physician Information: Erasto Ta M.D. [address] [facility] [address] Phone:?[phone] Fax:[phone] Patient:Rob Salazar D.O.B:?1955 Sex:?Female Phone:?[phone] [facility] MRN:?[id number] Exam Date:?03/10/2024 EXAM: MRI EXAMINATION OF THE RIGHT SHOULDER CLINICAL INFORMATION: Right shoulder pain. No history of surgery to this area. Evaluate mass versus osteoarthritis. TECHNICAL INFORMATION: Coronal STIR as well as axial, sagittal and coronal PD and T2-weighted images were acquired. INTERPRETATION: Bones: There is no Hill-Sachs impaction deformity. No other occult fracture or osseous contusion. Minimal subchondral cystic changes along the periphery of the glenoid. Rotator Cuff: There is abnormal thickening and signal heterogeneity as well as mild surface irregularity in keeping with moderate changes of supraspinatus tendinopathy. Mild to moderate infraspinatus tendinopathy. The teres minor tendon is intact. Series 8 images 10 and 11 demonstrate a 1 cm craniocaudal intrasubstance partial tear involving the superior subscapularis tendon. The bony coracohumeral interval is measuring 1.1 cm. There is a mild to moderate appearance of subcoracoid bursitis. No appreciable rotator cuff muscle belly atrophy. Coracoacromial arch: There is no discrete subacromial osseous spur. The bony acromiohumeral interval is measuring 10 to 11 mm. There is no thickening identified of the coracoacromial ligament. Acromioclavicular joint: There is a mild to moderate appearance of AC joint DJD. No deformity of the underlying supraspinatus tendon. Mild fluid and edema signal within the subacromial/subdeltoid bursa areas. Biceps tendon: Increased signal intensity and thickening in keeping with marked long head biceps tendinopathy. Mild/early medial subluxation of the tendon from the far superior bicipital groove on series 9 image 17. Marked bicipital tenosynovitis. Glenohumeral joint and labrum: There is a moderate glenohumeral joint effusion. No discrete loose body within the joint. Chondromalacia involving the glenoid includes areas of full-thickness cartilage loss along its periphery. Series 4 image 13 and series 8 image 10 image 31 segment of grade 3 and IV chondromalacia overlying the superior aspect of the humeral head. There is tearing through the superior aspect of the labrum. There is tearing identified involving the posterior, inferior and anteroinferior labrum. No discrete paralabral cyst is identified. There is no evidence for a soft tissue cyst or mass about the shoulder. CONCLUSION: 1. Moderate supraspinatus and mild to moderate infraspinatus tendinopathy. 2. There is a small to moderate-sized intrasubstance partial tear involving the superior subscapularis tendon. No abnormal narrowing of the coracohumeral interval, but mild to moderate subcoracoid bursitis. 3. Marked long head biceps tendinopathy. Early biceps curtis lesion with mild/early medial subluxation of the tendon from the superior bicipital groove. Marked bicipital tenosynovitis. 4. Glenohumeral chondromalacia. Patchy areas of full-thickness loss along the periphery of the glenoid and involving the superior aspect of the humeral head. 5. Mild to moderate AC joint DJD. Mild subacromial/subdeltoid bursitis. 6. Tearing through the superior labrum. Additional tearing involves the inferior, anteroinferior and posterior inferior labrum. KES Electronically signed on 03/10/2024 12:59:00 PM by Noah Serna M.D.
== END 2024-03-10 09:57 | disposition home or self-care (01) ==
LOC: MRI 09:57
PROVIDERS: PCP Family Medicine; Visit Provider Orthopaedic Surgery
DX: M19.011 Primary osteoarthritis, right shoulder (principal); M25.511 Pain in right shoulder; M94.211 Chondromalacia, right shoulder; S43.431A Superior glenoid labrum lesion of right shoulder, initial encounter; M75.21 Bicipital tendinitis, right shoulder; M75.51 Bursitis of right shoulder
CPT/HCPCS: 73221

== ENCOUNTER 2024-03-24 14:27 | Outpatient (CLI) | payer OTHER, SELFPAY ==
--- NOTE | 2024-03-24 14:30 | MR_ITS ---
[facility] [address] [facility] [address] Phone:?[phone] Fax:?[phone] Referring Physician Information: Erasto Ta M.D. [address] [facility] [address] Phone:?[phone] Fax:?[phone] Patient:Rob Salazar D.O.B:?1955 Sex:?Female Phone:?[phone] [facility] MRN:?[id number] Exam Date:?03/24/2024 EXAM: MRI of BILATERAL STERNOCLAVICULAR JOINTS, without contrast CLINICAL: 68-year-old woman with right sternoclavicular joint pain. INDICATION: Evaluate for mass. PRIOR SURGERY: None reported. PLAIN FILMS: None available. COMPARISONS: No prior MRIs available. TECHNICAL: Using a 1.5T MRI scanner: coronals: T1, STIR sagittals: T1, STIR axials: T1, STIR INTERPRETATION: Moderate chondral thinning, osteophytosis, and reactive edema of the right sternoclavicular joint with a moderate joint effusion. This is associated with a slender ganglion cyst located anteroinferior to the joint measuring 1.3 x 2.0 x 0.5 cm, which is located in close proximity to the skin marker placed by the patient (sagittal STIR series 4 image 27 and axial STIR series 10 image 10). Mild left sternoclavicular joint space narrowing, reactive edema, and osteophytosis. No significant joint effusion or evidence of a ganglion cyst. The medial ends of the clavicles are intact without stress/occult fracture or osseous lesion. The manubrium and superior aspect of the sternum included is unremarkable without stress/occult fracture, bone marrow edema or osseous mass. The first through third sternocostal junctions appear intact. CONCLUSION: 1. Moderate right sternoclavicular joint osteoarthritis with a moderate joint effusion and associated with a slender ganglion cyst located anteroinferior to the joint measuring 1.3 x 2.0 x 0.5 cm. 2. Mild left sternoclavicular joint osteoarthritis. 3. Otherwise unremarkable MRI of bilateral sternoclavicular joints. BC Electronically signed on 03/25/2024 8:34:00 AM by Solomon Lemon M.D.
--- OUTSIDE RECORDS SUMMARY | 2024-03-24 14:30 | XMS_ITS | Encounter Summary ---
Author Organization [facility] Address [address] [place] [address] Care Team Providers Care Casting Room Operator Name Role Phone Edgardo Pollard MD Primary Care Provider [phone] Encounter Details Date Type Department Care Team (Late st Contact Info) Description 01/01/2016 Outside Hospital External to [facility], Provider [facility] INPATIENT CONSULTATION Social History Tobacco Use [...] on filedocumented in this encounter Care Teams Casting Room Operator Relationship Specialty Start Date End Date Edgardo Pollard MD [facility] [address] [place] [address] PCP - General Family Practice 04/13/21 documented as of this encounter
--- OUTSIDE RECORDS SUMMARY | 2024-03-24 14:30 | XMS_ITS | Encounter Summary ---
Author Organization [employer] Address [address] [place] [address] Care Team Providers Care Carding Machine Feeder Name Role Phone Edgardo Pollard MD Primary Care Provider [phone] Encounter Details Date Type Department Care Team (Late st Contact Info) Description 12/29/2015 Outside Hospital External to [facility], Provider [facility] OPERATION REPORT Social History Tobacco Use Types Packs/Day Years Used Date Smoking Tobacco: Never Sex and Gender Information Value Date Recorded Sex Assigned at Not on file Gender Identity Not on file Sexual Orientation Not on file documented as of this encounter Plan of Treatment Not on file documented as of this encounter Visit Diagnoses Not on filedocumented in this encounter Care Teams Carding Machine Feeder Relationship Specialty Start Date End Date Edgardo Pollard MD [facility] [address] [place] [address] PCP - General Family Practice 04/13/21 documented as of this encounter
--- OUTSIDE RECORDS SUMMARY | 2024-03-24 14:30 | XMS_ITS | Encounter Summary ---
Author Organization [facility] Address [address], [place] [address] Care Team Providers Care Lug Loader Name Role Phone Edgardo Pollard MD Primary Care Provider [phone] Encounter Details Date Type Department Care Team (Latest Contact Info) Description 01/27/2024 12:10 PM CDT - 01/27/2024 11:59 PM CDT Hospital Encounter [facility] Gastroenterology [address] [place] [address] Ann Garg MD [address] [place] [address] Screen for colon cancer (Primary [...] Body Mass Index 21.14 08/04/2020 11:18 AM FREELANCE DIRECTOR documented in this encounter Discharge Instructions * [...] Where can you learn more? Go to [employer] and enter C571 in the search box. Current as of: June 02, 2015 Content Version: 108 ?? [id number] epacube. Learning About Diverticulosis and Diverticulitis What are [...] Where can you learn more? Go to [employer] and enter E426 in the search box. Current as of: June 02, 2015 Content Version: 108 ?? 6553-3539 [employer], [employer] (EB[employer]). Hemorrhoids: Care Instructions Your Care Instructions Hemorrhoids [...] your doctor if you can take an bikr-qec-xvuusys medicine. Keep the anal area clean, but [...] or psyllium (available in bulk at most [employer] food stores) and sprinkling it on foods [...] Where can you learn more? Go to [employer] and enter F228 in the search box. Current as of: June 02, 2015 Content Version: 108 ?? 0628-3378 epacube. documented in this encounter Medications at Time [...] previously scheduled. Procedure Code(s): --- Professional --- 92341, 22,PT, Colonoscopy, flexible; with endoscopic mucosal resection 71351, 59,PT, Colonoscopy, flexible; with removal of tumor(s), polyp(s), or other lesion(s) by snare technique 01668, 59,PT, Colonoscopy, flexible; with biopsy, single or multiple 92920, 59,PT, Colonoscopy, flexible; with directed submucosal injection(s), any substance G0500, PT, Moderate sedation services provided by the same physician or other qualified health tree care foreman performing a gastrointestinal endoscopic service that sedation supports, requiring the presence of an independent trained observer to assist in the monitoring of the patient's level of consciousness and physiological status; initial 15 minutes of intra-service time; patient age 5 years or older (additional time may be reported with 15772, as appropriate) 51092, PT, Moderate sedation; each additional 15 minutes intraservice time Diagnosis Code(s): --- Professional --- Z12.11, Encounter for screening for malignant neoplasm of colon Z86.010, Personal history of colonic polyps K63.5, Polyp of Colon K64.8, Other hemorrhoids K57.30, Diverticulosis of large intestine without perforation or abscess without bleeding CPT copyright 2021 [employer]. All rights reserved. The codes documented in this report are preliminary and upon medical biller coder review may be revised to meet current [...] PM CDT) Case Report Surgical Pathology ?Case: [id number] ? Authorizing Provider: ??Ann Garg MD ? Collected: ? 01/27/2024 1335 ? Ordering Location: ? [facility] ?? Received: ?01/27/2024 1418 ? Center Gastroenterology ? Pathologist: ? Salena Foster MD ? Specimen: ?Colon, hepatic flexure, transverse ? 02/02/2024 10:39 AM [facility] FINAL DIAGNOSIS A. Colon, hepatic flexure, transverse, polypectomies: Tubular adenoma fragments 02/02/2024 10:39 AM [facility] Clinical Information Screening Colon 02/02/2024 10:39 AM [facility] Microscopic Description Microscopic examination is performed. 02/02/2024 10:39 AM T [facility] Gross Description A: The specimen is received [...] cassette A2. DR 02/02/2024 10:39 AM CDT [facility] Embedded Images 02/02/2024 10:39 AM T [facility] Tissue COLON STRUCTURE / Unknown 01/27/2024 1:35 PM CDT 01/27/2024 2:18 PM CDT Ann Garg MD LAB PATHOLOGY Performing Organization Address City/State/[facility] [place] [address], [facility] * COLONOSCOPY [[id number]] (01/27/2024 12:20 PM CDT) 01/27/2024 12:2 0 [...] Procedure Code(s): ? --- Professional --- ? 27489, 22,PT, Colonoscopy, flexible; with ? endoscopic mucosal resection ? 47727, 59,PT, Colonoscopy, flexible; with removal ? of tumor(s), polyp(s), or other lesion(s) by snare ? technique ? 64955, 59,PT, Colonoscopy, flexible; with biopsy, ? single or multiple ? 64240, 59,PT, Colonoscopy, flexible; with directed ? submucosal [...] (additional time may ? be reported with 28036, as appropriate) ? 65465, PT, Moderate sedation; each additional 15 ? minutes intraservice time Diagnosis Code(s): ? --- Professional --- ? Z12.11, Encounter for screening for malignant ? neoplasm of colon ? Z86.010, Personal history of colonic polyps ? K63.5, Polyp of Colon ? K64.8, Other hemorrhoids ? K57.30, Diverticulosis of large intestine without ? perforation or abscess without bleeding CPT copyright 2021 [employer]. All rights reserved. The codes documented in this report are preliminary and upon medical biller coder review may be revised to meet current [...] previously scheduled. Procedure Code(s): --- Professional --- 99874, 22,PT, Colonoscopy, flexible; with endoscopic mucosal resection 44770, 59,PT, Colonoscopy, flexible; with removal of tumor(s), polyp(s), or other lesion(s) by snare technique 50194, 59,PT, Colonoscopy, flexible; with biopsy, single or multiple 63195, 59,PT, Colonoscopy, flexible; with directed submucosal injection(s), any substance G0500, PT, Moderate sedation services provided by the same physician or other qualified health tree care foreman performing a gastrointestinal endoscopic service that sedation supports, requiring the presence of an independent trained observer to assist in the monitoring of the patient's level of consciousness and physiological status; initial 15 minutes of intra-service time; patient age 5 years or older (additional time may be reported with 79204, as appropriate) 73206, PT, Moderate sedation; each additional 15 minutes intraservice time Diagnosis Code(s): --- Professional --- Z12.11, Encounter for screening for malignant neoplasm of colon Z86.010, Personal history of colonic polyps K63.5, Polyp of Colon K64.8, Other hemorrhoids K57.30, Diverticulosis of large intestine without perforation or abscess without bleeding CPT copyright 2021 [employer]. All rights reserved. The codes documented in this report are preliminary and upon medical biller coder review may be revised to meet current compliance requirements. Attending Participation: MD Ann Portillo MD 01/27/2024 1:45:17 PM This report has been signed electronically. Number of Addenda: 0 Note Initiated On: 01/27/2024 12:20 PM Ann Garg MD [facility] GI ([facility] [place], [place] documented in this encounter Visit Diagnoses [...] mg documented in this encounter Care Teams Lug Loader Relationship Specialty Start Date End Date Edgardo Pollard MD [facility] [address] [place] [address] PCP - General Family Practice 04/13/21 documented as of this encounter
--- OUTSIDE RECORDS SUMMARY | 2024-03-24 14:30 | XMS_ITS | Encounter Summary ---
Author Organization [employer] Address [address] [place] [address] Care Team Providers Care Bowling Ball Grader Name Role Phone Edgardo Pollard MD Primary Care Provider [phone] Encounter Details Date Type Department Care Team [...] on filedocumented in this encounter Care Teams Bowling Ball Grader Relationship Specialty Start Date End Date Edgardo Pollard MD [facility] [address] [place] [address] PCP - General Family Practice 04/13/21 documented as of this encounter
--- OUTSIDE RECORDS SUMMARY | 2024-03-24 14:30 | XMS_ITS | Encounter Summary ---
Author Organization [employer] Address [address] [place] [address] Care Team Providers Care Strip Stamp Straightener Name Role Phone Edgardo Pollard MD Primary Care Provider [phone] Encounter Details Date Type Department Care Team (Late st Contact Info) Description 04/03/2016 Correspondence External to External, [place] [address] [facility] NEW PATIENT FORMS Social History [...] on filedocumented in this encounter Care Teams Strip Stamp Straightener Relationship Specialty Start Date End Date Edgardo Pollard MD [facility] [address] [place] [address] PCP - General Family Practice 04/13/21 documented as of this encounter
--- OUTSIDE RECORDS SUMMARY | 2024-03-24 14:30 | XMS_ITS | Clinical Summary ---
Author Organization [facility] Address [address] [place] [address] Care Team Providers Care Crop Farm Helper Name Role Phone Edgardo Pollard MD Primary Care Provider Source Comments You are receiving this document as you are listed as the primary care provider,follow-up provider, or the patient has been referred to you for consultation.This is in compliance with the Medicare and[facility] EHR Incentive Program,which states Providers who transition their patient to another setting of careor provider of care or refers their patient to another provider of care shouldprovide summary care record for each transition of care or referral. [employer] Allergies No known active allergies Medications Medication [...] normal), last pap 2014 was NILM at [facility] (no HPV tested 2019 NILM; HPV negative [...] Jazz Logan RN ; CAREPLAN: ANTI-COAGULATION CAREPLAN: [facility] DISEASE MANAGEMENT 6 05/13/2016 Overview (05/13/2016): Background: Engaged in Complex Case Management:Caro Yanez RN [phone] Goals/Recommendations: Encounters Date Type Department Care Team Description 01/27/2024 12:10 PM CDT - 01/27/2024 11:59 PM CDT Hospital Encounter [facility] Gastroenterology [address] [place] [address] Ann Garg MD Screen for colon cancer (Primary Dx) Discharge Disposition: Home 01/09/2024 E-Visit [facility] Gastroenterology [address] [place] [address] Mychart, Generic Provider 01/08/2024 Notes/Orders [facility] Gastroenterology [address] [place] [address] Ann Garg MD from Last 3 Months [...] 167.6 cm (5' 6) 08/04/2020 11:18 AM [facility] Body Mass Index 21.14 08/04/2020 11:18 AM [facility] Plan of Treatment Health Maintenance Due Date Last Done Comments Hep C Screening (Preventive Services) 1955 MTM Covered 1955 Cholesterol 1998 Pneumococcal 65+ Yrs (1 - PCV) 2018 Medicare Annual Wellness Visit 07/14/2023 COVID-19 Vaccine (2 - 2022- season) 2024 09/20/2020 Influenza (#1) 2024 05/17/2021, 06/28/2019 Mammogram 05/26/2024 [...] ROLANDO W CAD Routine 05/26/2023 1:00 PM [facility] DXA BONE DENSITY SPINE/HIP/FOREARM Routine 09/15/2018 11:49 AM [facility] Osteoporosis screening from Last 3 Months or Most Recently Relevant to Health Maintenance Results * Surgical Path - GI (01/27/2024 1:35 PM CDT) Case Report Surgical Pathology ?Case: [id number] ? Authorizing Provider: ??Ann Garg MD ? Collected: ? 01/27/2024 1335 ? Ordering Location: ? [facility] ?? Received: ?01/27/2024 1418 ? Center Gastroenterology ? Pathologist: ? Salena Foster MD ? Specimen: ?Colon, hepatic flexure, transverse ? 02/02/2024 10:39 AM [facility] FINAL DIAGNOSIS A. Colon, hepatic flexure, transverse, polypectomies: Tubular adenoma fragments 02/02/2024 10:39 AM [facility] Clinical Information Screening Colon 02/02/2024 10:39 AM [facility] Microscopic Description Microscopic examination is performed. 02/02/2024 10:39 AM [facility] Gross Description A: The specimen is [...] submitted in cassette A2. 02/02/2024 10:39 AM [facility] Embedded Images 02/02/2024 10:39 AM [facility] Tissue COLON STRUCTURE / Unknown 01/27/2024 1:35 PM CDT 01/27/2024 2:18 PM CDT Ann Garg MD LAB PATHOLOGY [address] [address], [facility] * COLONOSCOPY [[id number]] (01/27/2024 12:20 PM CDT) 01/27/2024 12:2 0 [...] the transverse colon, removed ? with a Dittito cold forceps. Resected and retrieved. ? - [...] Procedure Code(s): ? --- Professional --- ? 16865, 22,PT, Colonoscopy, flexible; with ? endoscopic mucosal resection ? 66605, 59,PT, Colonoscopy, flexible; with removal ? of tumor(s), polyp(s), or other lesion(s) by snare ? technique ? 54655, 59,PT, Colonoscopy, flexible; with biopsy, ? single or multiple ? 08028, 59,PT, Colonoscopy, flexible; with directed ? submucosal [...] (additional time may ? be reported with 76118, as appropriate) ? 51585, PT, Moderate sedation; each additional 15 ? minutes intraservice time Diagnosis Code(s): ? --- Professional --- ? Z12.11, Encounter for screening for malignant ? neoplasm of colon ? Z86.010, Personal history of colonic polyps ? K63.5, Polyp of Colon ? K64.8, Other hemorrhoids ? K57.30, Diverticulosis of large intestine without ? perforation or abscess without bleeding CPT copyright 202 [employer]. All rights reserved. The codes documented in this report are preliminary and upon harmonic analyst review may be revised to meet current [...] previously scheduled. Procedure Code(s): --- Professional --- 38110, 22,PT, Colonoscopy, flexible; with endoscopic mucosal resection 55451, 59,PT, Colonoscopy, flexible; with removal of tumor(s), polyp(s), or other lesion(s) by snare technique 68430, 59,PT, Colonoscopy, flexible; with biopsy, single or multiple 12080, 59,PT, Colonoscopy, flexible; with directed submucosal injection(s), any substance G0500, PT, Moderate sedation services provided by the same physician or other qualified health landcare officer performing a gastrointestinal endoscopic service that sedation supports, requiring the presence of an independent trained observer to assist in the monitoring of the patient's level of consciousness and physiological status; initial 15 minutes of intra-service time; patient age 5 years or older (additional time may be reported with 70552, as appropriate) 68060, PT, Moderate sedation; each additional 15 minutes intraservice time Diagnosis Code(s): --- Professional --- Z12.11, Encounter for screening for malignant neoplasm of colon Z86.010, Personal history of colonic polyps K63.5, Polyp of Colon K64.8, Other hemorrhoids K57.30, Diverticulosis of large intestine without perforation or abscess without bleeding CPT copyright 2 [employer]. All rights reserved. The codes documented in this report are preliminary and upon harmonic analyst review may be revised to meet current compliance requirements. Attending Participation: MD Ann Portillo MD 01/27/2024 1:45:17 PM This report has been signed electronically. Number of Addenda: 0 Note Initiated On: 01/27/2024 12:20 PM Ann Garg MD DIGESTIVE CARE GI ([employer]) [facility], [place] * MM Mammogram Screening Bilat W 3D Rolando W CAD (05/26/2023 1:00 PM [facility]) Anatomical Region Laterality Modality Breast Bilateral Mammography Impressions 05/27/2023 1:18 PM [facility] : ACR BI-RADS Category 1: Negative RECOMMENDATION: Follow Up Imaging in 12 months - Bilateral The results and recommendations of this examination will be communicated to the patient. Narrative 05/27/2023 1:18 PM [facility] MM MAMMOGRAM SCREENING BILAT W 3D ROLANDO [...] Dexa Bone Density Spine/Hip/Forearm (09/15/2018 11:49 AM [facility]) Anatomical Region Laterality Modality Lower Extremity, Upper Extremity, Spine, Hip, L- Spine, Forearm Other Narrative 09/15/2018 12:23 PM [facility] WHO Criteria for the diagnosis of osteoporosis: T-score >-1 Normal T-score between -1 and -2.5 Osteopenia T-score <-2.5 Osteoporosis Fracture risk: T-score -1 ?? 2 times increased ?-2 ?? 4 times increased ?-3 ?? 6 times increased *With previous fragility fracture, risk of subsequent fracture doubles again SCREENING FOR OSTEO, HOLD CALCIUM Indication:Screening Glass Cutter Hand and Model of Instrument: [employer] Demographics Age: 63 y.o. Gender: female Height [...] 11:39 AM 01/09/2016 5:25 PM Care Teams Crop Farm Helper Relationship Specialty Start Date End Date Edgardo Pollard MD [facility] [address] [place] [address] PCP - General Family Practice 04/13/21
--- OUTSIDE RECORDS SUMMARY | 2024-03-24 14:30 | XMS_ITS | Encounter Summary ---
Author Organization [facility] Address [address] [place] [address] Care Team Providers Care Stripper Shovel Operator Name Role Phone Edgardo Pollard MD Primary Care Provider [phone] Encounter Details Date Type Department Care Team (Late st Contact Info) Description 01/08/2024 Notes/Orders [facility] Gastroenterology [address] [place], [place] [id number] Ann Garg MD [address] [place], [place] [id number] Social History Tobacco Use Types Packs/Day Years [...] on filedocumented in this encounter Care Teams Stripper Shovel Operator Relationship Specialty Start Date End Date Edgardo Pollard MD [facility] [address] [facility] [address] PCP - General Family Practice 04/13/21 documented as of this encounter
--- OUTSIDE RECORDS SUMMARY | 2024-03-24 14:30 | XMS_ITS | Encounter Summary ---
Author Organization [employer] Address [address] [place] [address] Care Team Providers Care Gravity Prospecting Operator Name Role Phone Edgardo Pollard MD Primary Care Provider [phone] Encounter Details Date Type Department Care Team (Late st Contact Info) Description 01/05/2016 Outside Hospital External to [facility], Provider [facility] D/C SUMMARY Social History Tobacco Use Types [...] on filedocumented in this encounter Care Teams Gravity Prospecting Operator Relationship Specialty Start Date End Date Edgardo Pollard MD [facility] [address] [place] [address] PCP - General Family Practice 04/13/21 documented as of this encounter
--- OUTSIDE RECORDS SUMMARY | 2024-03-24 14:30 | XMS_ITS | Encounter Summary ---
Author Organization [facility] Address [address] [place] [address] Care Team Providers Care Esol Teacher Assistant Name Role Phone Edgardo Pollard MD Primary Care Provider [phone] Encounter Details Date Type Department Care Team (Late st Contact Info) Description 01/09/2024 E-Visit [facility] Gastroenterology [address] [place] [address] Mychart, [place] [address] Social History Tobacco Use Types Packs/Day Years [...] on filedocumented in this encounter Care Teams Esol Teacher Assistant Relationship Specialty Start Date End Date Edgardo Pollard MD [facility] [address] [place] [address] PCP - General Family Practice 04/13/21 documented as of this encounter
--- OUTSIDE RECORDS SUMMARY | 2024-03-24 14:30 | XMS_ITS | Encounter Summary ---
Author Organization [employer] Address [address] [place] [address] Care Team Providers Care Dolphin Trainer Name Role Phone Edgardo Pollard MD Primary Care Provider [phone] Encounter Details Date Type Department Care Team [...] on filedocumented in this encounter Care Teams Dolphin Trainer Relationship Specialty Start Date End Date Edgardo Pollard MD [facility] [address] [place] [address] PCP - General Family Practice 04/13/21 documented as of this encounter
--- OUTSIDE RECORDS SUMMARY | 2024-03-24 14:30 | XMS_ITS | Encounter Summary ---
Author Organization [employer] Address [address] [place] [address] Care Team Providers Care Service Cashier Name Role Phone Edgardo Pollard MD Primary Care Provider [phone] Encounter Details Date Type Department Care Team (Late st Contact Info) Description 12/27/2015 Outside Hospital External to [facility], Provider [facility] Social History Tobacco Use [...] on filedocumented in this encounter Care Teams Service Cashier Relationship Specialty Start Date End Date Edgardo Pollard MD [facility] [address] [place] [address] PCP - General Family Practice 04/13/21 documented as of this encounter
--- OUTSIDE RECORDS SUMMARY | 2024-03-24 14:30 | XMS_ITS | Encounter Summary ---
Author Organization [facility] Address [address] [place] [address] Care Team Providers Care Ap Processor Name Role Phone Edgardo Pollard MD Primary Care Provider [phone] Encounter Details Date Type Department Care Team (Late st Contact Info) Description 01/19/2016 Correspondence [facility] [address] [place], [place] [id number] [place] [address] [place] [address] DISABILITY PARKING APPLICATION Social History Tobacco Use [...] on filedocumented in this encounter Care Teams Ap Processor Relationship Specialty Start Date End Date Edgardo Pollard MD [facility] [address] [place] [address] PCP - General Family Practice 04/13/21 documented as of this encounter
== END 2024-03-24 14:28 | disposition home or self-care (01) ==
PROVIDERS: PCP Family Medicine; Visit Provider Orthopaedic Surgery
DX: M19.011 Primary osteoarthritis, right shoulder (principal)
CPT/HCPCS: 73221